=== PATIENT | female | born 1995 | race Caucasian/White ===

== ENCOUNTER → 2022-09-09 | Outpatient (CLI) | payer OTHER, SELFPAY ==
--- NOTE | 2022-09-09 13:02 | US_ITS ---
INDICATION: URINARY FREQUENCY EXAMINATION: Ultrasound US Kidney(s) complete (eg, kidneys and bladder) TECHNIQUE: Haines scale and color doppler images were obtained of the kidneys. COMPARISON: None. FINDINGS: RIGHT KIDNEY: Right kidney normal echotexture and size, measuring 10.2 x 4.4 x 2.9 cm with cortical thickness of 1.2 cm. There is no hydronephrosis. No shadowing calculus, focal lesion or perinephric collection is demonstrated. LEFT KIDNEY: Left kidney normal size and echotexture, measuring 10.9 x 4.6 x 4.1 cm, with cortical thickness 1.1 cm. There is no hydronephrosis. No shadowing calculus, focal lesion or perinephric collection is demonstrated. URINARY BLADDER: No urinary bladder wall thickening or intraluminal filling defects demonstrated. Bilateral ureteral jets visualized. Urinary bladder volume 327 mL, with no postvoid imaging performed. US/Kidney and Bladder IMPRESSION: Negative renal ultrasound. Electronically Signed: Charly Kolb MD at 0:47 EST ,
== END | disposition home or self-care (01) ==
PROVIDERS: PCP Nurse Practitioner Family; Visit Provider Nurse Practitioner Family
DX: R35.0 Frequency of micturition (principal)
CPT/HCPCS: 76770